=== PATIENT | female | born 1975 | race African-American/Black ===

== ENCOUNTER 2017-01-05 12:02 | Emergency (ER) | payer OTHER ==
[~2017-01-05] VITALS: Ht 162.6 cm; Wt 95.3 kg
--- NOTE | ~2017-01-05 | EKG ---
[address] [address] ELECTROCARDIOGRAM REPORT Name: GIRMA DUNHAMTYCHRISTIANO Chopra Room #: [facility]#: [id number] Admission: 01/05/17 Attend Phys: Discharge: 01/05/17 Date of : 73 Report #: [id number] THIS REPORT FOR: //name// [facility] ED Test Date: 2017-01-05 Test Time: 12:16:52 Pat Name: JONNY DUNHAM Department: Room: Gender: F Stallion Manager: Leslie PANG : 1975 Requested By: Noris Gleason Order Number: [id number] MD: Issa Welch Measurements Intervals [place] Rate: 102 P: 51 [place]: 165 QRS: 50 QRSD: 90 T: 43 QT: 347 QTc: 453 Interpretive Statements Sinus tachycardia Probable left atrial enlargement ST elev, probable normal early repol pattern Compared to ECG 12/08/2014 19:55:33 Early repolarization no longer present ST (T wave) deviation still present Electronically Signed On 01-05-2017 21:04:27 CDT by Issa Welch [email or web address] <ELECTRONICALLY SIGNED> By: Issa Welch MD 01/05/17 2104 1216 1216 Issa Welch MD /EPI
[~2017-01-05 12:02] MED LIST: AMBIEN PO; COLACE100 MG PO; CYMBALTA; FLEXERIL PO; FLONASE 0.05%50 MCG NASAL; GEODON80 MG PO; HYDROCHLOROTHIA25 M2 PO; IBUPROFEN 600600 M1; IBUPROFEN 800800 MG PO; LOPID600 MG PO; MUCUS RELIEF D1 EAC1 PO; NAPROSYN500 MG PO; NORCO 5-325 TA1 EACH PO; NORVASC5 MG PO; ORABASE11.9 GM MM; PRINIVIL20 MG PO; SENNA8.6 MG PO; VENTOLIN HFA 1818 GM INH; [UNRECOGNIZED DRUG - REMARK]
[2017-01-05] MEDS ORDERED: GLYBURIDE 2.52.5 MG PO (12:16)
[2017-01-05] MEDS ORDERED: PROPRANOLOL 1010 MG PO (12:16)
[2017-01-05] MEDS ORDERED: DOK100 MG PO (12:17)
[2017-01-05] MEDS ORDERED: PRAVACHOL20 MG PO (12:17)
[2017-01-05] MEDS ORDERED: NORCO 5-325 TA1 EACH PO (12:27)
[2017-01-05] MEDS ORDERED: VALIUM5 MG PO (12:27)
== END 2017-01-05 13:00 | disposition home or self-care (01) ==
LOC: ER 12:02
DX: M43.6 Torticollis (principal); M54.5 Low back pain; I10 Essential (primary) hypertension; E11.9 Type 2 diabetes mellitus without complications; F32.9 Major depressive disorder, single episode, unspecified; F17.210 Nicotine dependence, cigarettes, uncomplicated; F10.99 Alcohol use, unspecified with unspecified alcohol-induced disorder

== ENCOUNTER 2017-04-08 02:04 | Emergency (ER) | payer OTHER ==
[~2017-04-08] VITALS: Ht 167.6 cm; Wt 119.8 kg
[~2017-04-08 02:04] MED LIST changes: +DOK100 MG PO; +GLYBURIDE 2.52.5 MG PO; +PRAVACHOL20 MG PO; +PROPRANOLOL 1010 MG PO; +VALIUM5 MG PO
[2017-04-08 03:18] LABS: CREATININE 0.8 mg/dL (0.6-1.0); POTASSIUM 3.1 mmol/L (3.5-5.1)
[2017-04-08 03:19] LABS: ABSOLUTE NEUTROPHILS 5.2 thou/uL (1.4-8.2); BASOPHILS 0.5 % (0.0-2.0); EOSINOPHILS 2.2 % (0.0-3.0); HEMATOCRIT 39.7 % (37.0-47.0); HEMOGLOBIN 12.7 gm/dL (12.0-15.0); LYMPHOCYTES 31.3 % (24.0-44.0); MCH 28.7 pg (26.0-34.0); MCHC 32.1 g/dL (28.0-37.0); MCV 89.3 fL (80.0-100.0); MONOCYTES 3.6 % (1.0-8.0); PLATELET COUNT 300 thou/uL (150-400); POLYS 62.4 % (36.0-66.0); RBC 4.44 mil/uL (4.20-5.00); RDW 15.9 % (10.5-14.5); WBC 8.3 thou/uL (4.0-11.0)
[2017-04-08] MEDS ORDERED: GUAIFEN-CODEINE10 ML PO (04:06)
[2017-11-07] MEDS ORDERED: NEURONTIN 300300 M1 PO (04:53)
[2017-11-07] MEDS ORDERED: TRILEPTAL150 MG PO (04:53)
[2017-11-07] MEDS ORDERED: NAPROSYN500 MG PO (06:12)
== END 2017-04-08 04:38 | disposition home or self-care (01) ==
LOC: ER 02:04
PROVIDERS: Emergency Medicine
DX: F41.9 Anxiety disorder, unspecified (principal); J06.9 Acute upper respiratory infection, unspecified; F17.210 Nicotine dependence, cigarettes, uncomplicated; F32.9 Major depressive disorder, single episode, unspecified

== ENCOUNTER 2017-04-11 11:10 | Emergency (ER) | payer OTHER ==
[~2017-04-11] VITALS: Ht 172.7 cm; Wt 117.9 kg
[~2017-04-11 11:10] MED LIST changes: +GUAIFEN-CODEINE10 ML PO
[2017-04-11] MEDS ORDERED: TESSALON PERLE100 MG PO (13:16)
[2017-04-11] MEDS ORDERED: VENTOLIN HFA 1818 GM INH (13:16)
[2017-04-11] MEDS ORDERED: PREDNISONE 20 M20 MG PO (13:16)
[2017-11-07] MEDS ORDERED: TRILEPTAL150 MG PO (04:53)
[2017-11-07] MEDS ORDERED: NEURONTIN 300300 M1 PO (04:53)
[2017-11-07] MEDS ORDERED: NAPROSYN500 MG PO (06:12)
== END 2017-04-11 13:28 | disposition home or self-care (01) ==
LOC: ER 11:10
DX: J42 Unspecified chronic bronchitis (principal); J98.01 Acute bronchospasm; M79.1 Myalgia; I10 Essential (primary) hypertension; F32.9 Major depressive disorder, single episode, unspecified; F41.9 Anxiety disorder, unspecified; F17.210 Nicotine dependence, cigarettes, uncomplicated

== ENCOUNTER 2017-04-20 00:49 | Emergency (ER) | payer OTHER ==
[~2017-04-20] VITALS: Ht 167.6 cm; Wt 119.8 kg
--- NOTE | ~2017-04-20 | EKG ---
[place] [address] [facility] [place] [address] ELECTROCARDIOGRAM REPORT Name: JONNY DUNHAM Room #: [facility]#: [id number] Admission: 04/20/17 Attend Phys: Discharge: 04/20/17 Date of : 73 Report #: [id number] THIS REPORT FOR: //name// [facility] ED Test Date: 2017-04-20 Test Time: 02:45:16 Pat Name: JONNY DUNHAM Department: Room: Gender: F City Mail Carrier: Brandie LECHUGA : 1975 Requested By: Pablo Jaime Order Number: [id number] MD: Boogie Smyth Measurements Intervals [place] Rate: 100 P: 55 [place]: 152 QRS: 57 QRSD: 91 T: 55 QT: 366 QTc: 473 Interpretive Statements Sinus tachycardia Probable left atrial enlargement ST elev, probable normal early repol pattern Compared to ECG 01/05/2017 12:16:52 No significant changes Electronically Signed On 04-20-2017 7:35:58 LINE OUT WORKER by Boogie Smyth [email or web address] <ELECTRONICALLY SIGNED> By: Boogie Smyth MD, [facility] 04/20/17 0735 0245 0245 Boogie Smyth MD, [facility] /EPI
[~2017-04-20 00:49] MED LIST changes: +PREDNISONE 20 M20 MG PO; +TESSALON PERLE100 MG PO
[2017-04-20 02:51] LABS: HEMATOCRIT 42.5 % (37.0-47.0); HEMOGLOBIN 14.5 gm/dL (12.0-15.0); MCH 29.5 pg (26.0-34.0); MCV 86.6 fL (80.0-100.0); RBC 4.91 mil/uL (4.20-5.00); RDW 15.9 % (10.5-14.5); WBC 10.6 thou/uL (4.0-11.0)
[2017-04-20 03:00] LABS: ANION GAP 9 mmol/L (7-16); BUN 15 mg/dL (7-18); CALCIUM 9.6 mg/dL (8.5-10.1); CHLORIDE 97 mmol/L (98-107); CO2 30 mmol/L (21-32); CREATININE 0.8 mg/dL (0.6-1.0); GLUCOSE 182 mg/dL (74-106); POTASSIUM 3.7 mmol/L (3.5-5.1); SODIUM 136 mmol/L (136-145)
[2017-04-20 03:08] LABS: TROPONIN-I < 0.04 ng/mL (<0.06)
[2017-04-20] MEDS ORDERED: ZPAK PO (03:15)
[2017-04-20] MEDS ORDERED: NYAMYC15 GM TOP (03:15)
[2017-04-20] MEDS ORDERED: PROMETHAZINE/C118 ML PO (03:21)
[2017-11-07] MEDS ORDERED: NEURONTIN 300300 M1 PO (04:53)
[2017-11-07] MEDS ORDERED: TRILEPTAL150 MG PO (04:53)
[2017-11-07] MEDS ORDERED: NAPROSYN500 MG PO (06:12)
== END 2017-04-20 04:00 | disposition home or self-care (01) ==
LOC: ER 00:49
PROVIDERS: Emergency Medicine
DX: J06.9 Acute upper respiratory infection, unspecified (principal); I10 Essential (primary) hypertension; F32.9 Major depressive disorder, single episode, unspecified; F41.9 Anxiety disorder, unspecified; F17.210 Nicotine dependence, cigarettes, uncomplicated

== ENCOUNTER 2017-04-27 13:18 | Emergency (ER) | payer OTHER ==
[~2017-04-27] VITALS: Ht 167.6 cm; Wt 119.8 kg
--- NOTE | ~2017-04-27 | EKG ---
[place] [address] [facility] [place] [address] ELECTROCARDIOGRAM REPORT Name: JONNY DUNHAM Room #: [facility]#: [id number] Admission: 04/27/17 Attend Phys: Discharge: 04/27/17 Date of : 73 Report #: [id number] THIS REPORT FOR: //name// [facility] ED Test Date: 2017-04-27 Test Time: 14:53:23 Pat Name: JONNY DUNHAM Department: Room: Gender: F Jboss Architect: TONY : 1975 Requested By: Raffi Murillo Order Number: [id number] MD: Boogei Smyth Measurements Intervals [place] Rate: 94 P: 50 [place]: 169 QRS: 59 QRSD: 93 T: 34 QT: 363 QTc: 454 Interpretive Statements Sinus rhythm Probable left atrial enlargement Minimal ST elevation, anterior leads Compared to ECG 04/20/2017 02:45:16 Sinus tachycardia no longer present Electronically Signed On 04-27-2017 16:30:37 TOY ASSEMBLER WOOD by Boogie Smyth [email or web address] <ELECTRONICALLY SIGNED> By: Boogie Smyth MD, [facility] 04/27/17 1630 1453 1453 Boogie Smyth MD, [facility] /EPI
--- NOTE | ~2017-04-27 | EKG ---
[place] [address] [facility] [place] [address] ELECTROCARDIOGRAM REPORT Name: JONNY DUNHAM Room #: [facility]#: [id number] Admission: 04/27/17 Attend Phys: Discharge: 04/27/17 Date of : 73 Report #: [id number] THIS REPORT FOR: //name// [facility] ED Test Date: 2017-04-27 Test Time: 13:47:20 Pat Name: JONNY DUNHAM Department: Room: Gender: F Customer Relationship Specialist: TONY : 1975 Requested By: Pablo Jaime Order Number: [id number] MD: Boogie Smyth Measurements Intervals [place] Rate: 96 P: 37 [place]: 158 QRS: 46 QRSD: 91 T: 32 QT: 356 QTc: 450 Interpretive Statements Sinus rhythm ST elev, probable normal early repol pattern Compared to ECG 04/20/2017 02:45:16 Sinus tachycardia no longer present Electronically Signed On 04-27-2017 16:28:10 WHISKEY REGAUGER by Boogie Smyth [email or web address] <ELECTRONICALLY SIGNED> By: Boogie Smyth MD, [facility] 04/27/17 1628 1347 1347 Boogie Smyth MD, [facility] /EPI
[~2017-04-27 13:18] MED LIST changes: +NYAMYC15 GM TOP; +PROMETHAZINE/C118 ML PO; +ZPAK PO
[2017-04-27 13:53] LABS: HEMATOCRIT 40.6 % (37.0-47.0); HEMOGLOBIN 13.4 gm/dL (12.0-15.0); MCH 29.1 pg (26.0-34.0); RBC 4.61 mil/uL (4.20-5.00); RDW 15.9 % (10.5-14.5); WBC 10.3 thou/uL (4.0-11.0)
[2017-04-27 14:03] LABS: ANION GAP 8 mmol/L (7-16); BUN 9 mg/dL (7-18); CALCIUM 9.7 mg/dL (8.5-10.1); CHLORIDE 102 mmol/L (98-107); CO2 30 mmol/L (21-32); CREATININE 0.7 mg/dL (0.6-1.0); GLUCOSE 131 mg/dL (74-106); POTASSIUM 4.1 mmol/L (3.5-5.1); SODIUM 140 mmol/L (136-145)
[2017-04-27 14:12] LABS: TROPONIN-I < 0.04 ng/mL (<0.06)
[2017-04-27] MEDS ORDERED: TESSALON PERLE100 MG PO (15:20)
[2017-04-27] MEDS ORDERED: PROMETHAZINE-D118 ML PO (15:45)
[2017-04-27] MEDS ORDERED: HYDROXYZINE HCL10 M2 PO (15:45)
[2017-11-07] MEDS ORDERED: NEURONTIN 300300 M1 PO (04:53)
[2017-11-07] MEDS ORDERED: TRILEPTAL150 MG PO (04:53)
[2017-11-07] MEDS ORDERED: NAPROSYN500 MG PO (06:12)
== END 2017-04-27 15:46 | disposition left against medical advice (07) ==
LOC: ER 13:18
PROVIDERS: Emergency Medicine
DX: R07.89 Other chest pain (principal); F41.9 Anxiety disorder, unspecified; F32.9 Major depressive disorder, single episode, unspecified; F17.210 Nicotine dependence, cigarettes, uncomplicated; Z53.21 Procedure and treatment not carried out due to patient leaving prior to being seen by health care provider

== ENCOUNTER 2017-05-11 14:14 | Emergency (ER) | payer OTHER ==
--- NOTE | ~2017-05-11 | EKG ---
[address] [address] ELECTROCARDIOGRAM REPORT Name: JONNY DUNHAM Room #: [facility]#: [id number] Admission: Attend Phys: Discharge: Date of : 73 Report #: [id number] THIS REPORT FOR: //name// [facility] ED Test Date: 2017-05-11 Test Time: 14:16:44 Pat Name: GIRMATYCHRISTIANO DUNHAM Department: Room: Gender: F Senior Cytogenetics Laboratory Director: TONY : 1975 Requested By: Cookie Santos Order Number: [id number] MD: Measurements Intervals [place] Rate: 96 P: 53 [place]: 164 QRS: 52 QRSD: 93 T: 42 QT: 361 QTc: 457 Interpretive Statements Sinus rhythm Probable left atrial enlargement ST elevation suggests acute pericarditis Compared to ECG 04/27/2017 14:53:23 No significant changes [email or web address] By: 15 141 Kate Love MD /EPI
[~2017-05-11 14:14] MED LIST changes: +HYDROXYZINE HCL10 M2 PO; +PROMETHAZINE-D118 ML PO
[2017-05-11 14:42] LABS: HEMATOCRIT 40.1 % (37.0-47.0); HEMOGLOBIN 13.4 gm/dL (12.0-15.0); MCH 29.3 pg (26.0-34.0); MCHC 33.5 g/dL (28.0-37.0); MCV 87.7 fL (80.0-100.0); RBC 4.57 mil/uL (4.20-5.00); RDW 16.1 % (10.5-14.5); WBC 9.1 thou/uL (4.0-11.0)
[2017-05-11 14:49] LABS: ANION GAP 9 mmol/L (7-16); BUN 7 mg/dL (7-18); CALCIUM 10.7 mg/dL (8.5-10.1); CHLORIDE 100 mmol/L (98-107); CO2 31 mmol/L (21-32); CREATININE 0.8 mg/dL (0.6-1.0); GLUCOSE 148 mg/dL (74-106); POTASSIUM 3.6 mmol/L (3.5-5.1); SODIUM 140 mmol/L (136-145)
[2017-05-11 14:57] LABS: TROPONIN-I < 0.04 ng/mL (<0.06)
[2017-05-11] MEDS ORDERED: ROBITUSSIN100 MG/53 PO (15:21)
[2017-11-07] MEDS ORDERED: NEURONTIN 300300 M1 PO (04:53)
[2017-11-07] MEDS ORDERED: TRILEPTAL150 MG PO (04:53)
[2017-11-07] MEDS ORDERED: NAPROSYN500 MG PO (06:12)
== END 2017-05-11 18:23 | disposition home or self-care (01) ==
LOC: ER 14:14
PROVIDERS: Physician Assistant
DX: J42 Unspecified chronic bronchitis (principal); R07.89 Other chest pain; F41.9 Anxiety disorder, unspecified; F32.9 Major depressive disorder, single episode, unspecified; F17.210 Nicotine dependence, cigarettes, uncomplicated

== ENCOUNTER 2017-05-14 01:47 | Emergency (ER) | payer OTHER ==
[~2017-05-14] VITALS: Ht 167.6 cm; Wt 120.2 kg
[~2017-05-14 01:47] MED LIST changes: +ROBITUSSIN100 MG/53 PO
[2017-05-14] MEDS ORDERED: TESSALON PERLE100 MG PO (02:26)
[2017-05-14] MEDS ORDERED: NORFLEX100 MG PO (02:26)
[2017-05-14] MEDS ORDERED: NAPROSYN500 MG PO (02:26)
[2017-11-07] MEDS ORDERED: TRILEPTAL150 MG PO (04:53)
[2017-11-07] MEDS ORDERED: NEURONTIN 300300 M1 PO (04:53)
[2017-11-07] MEDS ORDERED: NAPROSYN500 MG PO (06:12)
== END 2017-05-14 02:45 | disposition home or self-care (01) ==
LOC: ER 01:47
DX: J06.9 Acute upper respiratory infection, unspecified (principal); M43.6 Torticollis; R20.2 Paresthesia of skin; F17.210 Nicotine dependence, cigarettes, uncomplicated

== ENCOUNTER 2017-06-30 06:57 | Emergency (ER) | payer OTHER ==
[~2017-06-30] VITALS: Ht 167.6 cm; Wt 120.2 kg
[~2017-06-30 06:57] MED LIST changes: +NORFLEX100 MG PO
[2017-06-30 07:00] VITALS: BP 138/75
[2017-06-30] MEDS ORDERED: PREDNISONE 20 M20 MG PO (07:08)
[2017-06-30] MEDS ORDERED: PEPCID40 MG PO (07:08)
[2017-06-30] MEDS ORDERED: CLARITIN10 MG PO (07:08)
== END 2017-06-30 07:35 | disposition home or self-care (01) ==
LOC: ER 06:57
DX: T78.40XA Allergy, unspecified, initial encounter (principal); F41.9 Anxiety disorder, unspecified; F32.9 Major depressive disorder, single episode, unspecified; F17.210 Nicotine dependence, cigarettes, uncomplicated; X58.XXXA Exposure to other specified factors, initial encounter

== ENCOUNTER 2017-07-18 18:36 | Emergency (ER) | payer OTHER ==
[~2017-07-18] VITALS: Ht 167.6 cm; Wt 119.8 kg
--- NOTE | ~2017-07-18 | EKG ---
[address] [address] ELECTROCARDIOGRAM REPORT Name: GIRMA DUNHAMLISA Nav Room #: [facility]#: [id number] Admission: 07/18/17 Attend Phys: Discharge: 07/18/17 Date of : 73 Report #: [id number] THIS REPORT FOR: //name// [facility] ED Test Date: 2017-07-18 Test Time: 18:42:21 Pat Name: JONNY DUNHAM Department: Room: Gender: F Machine Dyer: DOUG : 1975 Requested By: Cookie Santos Order Number: [id number] MD: Issa Welch Measurements Intervals [place] Rate: 96 P: 45 [place]: 178 QRS: 57 QRSD: 98 T: 51 QT: 371 QTc: 469 Interpretive Statements Sinus rhythm Probable left atrial enlargement Compared to ECG 05/11/2017 14:16:44 No significant changes Electronically Signed On 07-19-2017 8:08:49 CDT by Issa Welch [email or web address] <ELECTRONICALLY SIGNED> By: Issa Welch MD 07/19/17 0808 D: [id number] Issa Welch MD /[place]
[~2017-07-18 18:36] MED LIST changes: +CLARITIN10 MG PO; +PEPCID40 MG PO
[2017-07-18 19:02] LABS: HEMATOCRIT 43.2 % (37.0-47.0); HEMOGLOBIN 14.3 gm/dL (12.0-15.0); MCHC 33.1 g/dL (28.0-37.0); MCV 87.5 fL (80.0-100.0); RBC 4.93 mil/uL (4.20-5.00); RDW 15.1 % (10.5-14.5); WBC 10.5 thou/uL (4.0-11.0)
[2017-07-18 19:09] LABS: ANION GAP 5 mmol/L (7-16); BUN 8 mg/dL (7-18); CALCIUM 10.1 mg/dL (8.5-10.1); CHLORIDE 101 mmol/L (98-107); CO2 30 mmol/L (21-32); CREATININE 0.8 mg/dL (0.6-1.0); GLUCOSE 139 mg/dL (74-106); POTASSIUM 3.6 mmol/L (3.5-5.1); SODIUM 136 mmol/L (136-145)
[2017-07-18 19:17] LABS: ALBUMIN 3.6 g/dL (3.4-5.0); SGOT 51 U/L (15-37); SGPT 86 U/L (30-65); TOTAL BILIRUBIN 0.3 mg/dL (<0.1-1.0); TOTAL PROTEIN 7.7 g/dL (6.4-8.2); TROPONIN-I < 0.04 ng/mL (<0.06)
[2017-07-18 19:49] VITALS: BP 128/68
== END 2017-07-18 19:50 | disposition home or self-care (01) ==
LOC: ER 18:36
PROVIDERS: Physician Assistant
DX: R07.89 Other chest pain (principal); F17.210 Nicotine dependence, cigarettes, uncomplicated

== ENCOUNTER 2017-09-15 00:04 | Emergency (ER) | payer OTHER ==
[~2017-09-15] VITALS: Ht 167.6 cm; Wt 120.2 kg
[2017-09-15 00:09] VITALS: BP 136/84
[2017-09-15] MEDS ORDERED: XANAX 0.5 MG0.5 M1 PO (00:41)
[2017-09-15] MEDS ORDERED: CYCLOBENZAPRINE5 MG PO (00:49)
== END 2017-09-15 00:53 | disposition home or self-care (01) ==
LOC: ER 00:04
DX: F41.0 Panic disorder [episodic paroxysmal anxiety] (principal); R05 Cough; I10 Essential (primary) hypertension; F32.9 Major depressive disorder, single episode, unspecified; Z87.891 Personal history of nicotine dependence

== ENCOUNTER 2017-09-19 18:55 | Emergency (ER) | payer OTHER ==
[~2017-09-19] VITALS: Ht 167.6 cm; Wt 120.2 kg
[~2017-09-19 18:55] MED LIST changes: +CYCLOBENZAPRINE5 MG PO; +XANAX 0.5 MG0.5 M1 PO
[2017-09-19 18:56] VITALS: BP 132/83
[2017-09-19] MEDS ORDERED: VALIUM5 MG PO (19:17)
== END 2017-09-19 19:48 | disposition home or self-care (01) ==
LOC: ER 18:55
DX: F16.10 Hallucinogen abuse, uncomplicated (principal); F41.9 Anxiety disorder, unspecified; F32.9 Major depressive disorder, single episode, unspecified; F17.210 Nicotine dependence, cigarettes, uncomplicated

== ENCOUNTER 2017-10-24 14:42 | Emergency (ER) | payer OTHER ==
[~2017-10-24] VITALS: Ht 167.6 cm; Wt 115.7 kg
--- NOTE | ~2017-10-24 | EKG ---
[place] [address] [facility] [place] [address] ELECTROCARDIOGRAM REPORT Name: GIRMA DUNHAMTYCHRISTIANO Chopra Room #: [facility]#: [id number] Admission: 10/24/17 Attend Phys: Discharge: 10/24/17 Date of : 73 Report #: [id number] THIS REPORT FOR: //name// [facility] ED Test Date: 2017-10-24 Test Time: 14:44:01 Pat Name: JONNY DUNHAM Department: Room: Gender: F Taxation Agent: TONY : 1975 Requested By: Magdaleno Roman Order Number: [id number] MD: Boogie Smyth Measurements Intervals [place] Rate: 101 P: 68 [place]: 168 QRS: 61 QRSD: 94 T: 47 QT: 368 QTc: 477 Interpretive Statements Sinus tachycardia ST elev, probable normal early repol pattern Borderline prolonged QT interval Compared to ECG 07/18/2017 18:42:21 No significant change was found Electronically Signed On 10-25-2017 8:09:17 CDT by Boogie Smyth [email or web address] <ELECTRONICALLY SIGNED> By: Boogie Smyth MD, [facility] 10/25/17 0809 1444 1444 Boogie Smyth MD, [facility] /EPI
[2017-10-24 15:25] LABS: ABSOLUTE NEUTROPHILS 5.5 thou/uL (1.4-8.2); EOSINOPHILS 2.8 % (0.0-3.0); HEMATOCRIT 42.1 % (37.0-47.0); HEMOGLOBIN 14.1 gm/dL (12.0-15.0); LYMPHOCYTES 39.2 % (24.0-44.0); MCH 29.5 pg (26.0-34.0); MCHC 33.4 g/dL (28.0-37.0); MCV 88.2 fL (80.0-100.0); MONOCYTES 5.1 % (1.0-8.0); PLATELET COUNT 295 thou/uL (150-400); POLYS 51.9 % (36.0-66.0); RBC 4.77 mil/uL (4.20-5.00); RDW 15.6 % (10.5-14.5); WBC 10.6 thou/uL (4.0-11.0)
[2017-10-24 15:28] LABS: ANION GAP 8 mmol/L (7-16); BUN 7 mg/dL (7-18); CHLORIDE 101 mmol/L (98-107); CO2 27 mmol/L (21-32); CREATININE 0.8 mg/dL (0.6-1.0); GLUCOSE 109 mg/dL (74-106); POTASSIUM 3.8 mmol/L (3.5-5.1); SODIUM 136 mmol/L (136-145)
[2017-10-24 15:37] LABS: TROPONIN-I <0.06 ng/mL (<0.06)
[2017-10-24 15:53] LABS: URINE BILIRUBIN NEGATIVE (Negative); URINE BLOOD NEGATIVE (Negative); URINE CLARITY CLEAR; URINE COLOR YELLOW; URINE GLUCOSE-RANDOM* NEGATIVE (Negative); URINE KETONES NEGATIVE (Negative); URINE LEUKOCYTES-REFLEX NEGATIVE (Negative); URINE NITRITE-REFLEX NEGATIVE (Negative); URINE PROTEIN (DIPSTICK) NEGATIVE (Negative); URINE UROBILINOGEN 0.2 E.U./dl (0.2-1.0)
[2017-10-24 16:01] LABS: AMP/METHAMP Negative (Negative); BARBITURATES Negative (Negative); BENZODIAZEPINES POSITIVE (Negative); COCAINE Negative (Negative); METHADONE Negative (Negative); OPIATES Negative (Negative); PCP POSITIVE (Negative)
[2017-10-24 16:19] VITALS: BP 134/91
== END 2017-10-24 16:28 | disposition home or self-care (01) ==
LOC: ER 14:42
PROVIDERS: Emergency Medicine
DX: F16.10 Hallucinogen abuse, uncomplicated (principal); F17.210 Nicotine dependence, cigarettes, uncomplicated; F32.9 Major depressive disorder, single episode, unspecified; F41.9 Anxiety disorder, unspecified

== ENCOUNTER 2018-02-04 01:06 | Emergency (ER) | payer OTHER ==
[~2018-02-04] VITALS: Ht 167.6 cm; Wt 117.9 kg
--- NOTE | ~2018-02-04 | EKG ---
[address] [address] ELECTROCARDIOGRAM REPORT Name: JONNY DUNHAM Room #: [facility]#: [id number] Admission: 02/04/18 Attend Phys: Discharge: 02/04/18 Date of : 73 Report #: [id number] THIS REPORT FOR: //name// [facility] ED Test Date: 2018-02-04 Test Time: 01:45:16 Pat Name: JONNY DUNHAM Department: Room: Gender: F Veterinary Technology Instructor: shasta : 1975 Requested By: Gonzalo Abdi Order Number: [id number] MD: Boogie Smyth Measurements Intervals [place] Rate: 109 P: 65 [place]: 163 QRS: 54 QRSD: 95 T: 32 QT: 354 QTc: 477 Interpretive Statements Sinus tachycardia Poor R wave progression Compared to ECG 12/01/2017 19:16:01 No significant change was found Electronically Signed On 02-04-2018 8:10:23 ASSOCIATE SALES MANAGER by Boogie Smyth [email or web address] <ELECTRONICALLY SIGNED> By: Boogie Smyth MD, [facility] 02/04/18 0810 0145 014 Boogie Smyth MD, [facility] /EPI
[~2018-02-04 01:06] MED LIST changes: +NEURONTIN 300300 M1 PO; +TRILEPTAL150 MG PO
[2018-02-04 02:07] LABS: AMP/METHAMP Negative (Negative); BARBITURATES Negative (Negative); BENZODIAZEPINES Negative (Negative); COCAINE Negative (Negative); METHADONE Negative (Negative); OPIATES Negative (Negative); PCP POSITIVE (Negative)
[2018-02-04] MEDS ORDERED: TESSALON PERLE100 MG PO (02:26)
== END 2018-02-04 02:30 | disposition home or self-care (01) ==
LOC: ER 01:06
PROVIDERS: Emergency Medicine
DX: F41.9 Anxiety disorder, unspecified (principal); R06.02 Shortness of breath; F17.210 Nicotine dependence, cigarettes, uncomplicated; I10 Essential (primary) hypertension; E11.9 Type 2 diabetes mellitus without complications; F32.9 Major depressive disorder, single episode, unspecified

== ENCOUNTER → 2018-12-19 | Outpatient (CLI) | payer OTHER | LOC: ULTRA 02:20 → RAD 02:20 → ULTRA 10:21 | DX: N63.10 Unspecified lump in the right breast, unspecified quadrant (principal); R92.2 Inconclusive mammogram ==

== ENCOUNTER 2020-10-16 12:14 | Emergency (ER) | payer OTHER ==
[~2020-10-16] VITALS: Ht 167.6 cm; Wt 113.4 kg
[2020-10-16 12:23] VITALS: BP 120/79
[2020-10-16] MEDS ORDERED: CORICIDIN HBP1 EAC5 PO (12:34)
[2020-10-16] MEDS ORDERED: IBUPROFEN 600600 M1 PO (12:34)
== END 2020-10-16 13:09 | disposition home or self-care (01) ==
LOC: ER 12:14
DX: J06.9 Acute upper respiratory infection, unspecified (principal); R05 Cough; I10 Essential (primary) hypertension; E11.9 Type 2 diabetes mellitus without complications; F32.9 Major depressive disorder, single episode, unspecified; F41.9 Anxiety disorder, unspecified; F17.210 Nicotine dependence, cigarettes, uncomplicated; Z79.84 Long term (current) use of oral hypoglycemic drugs; Z79.810 Long term (current) use of selective estrogen receptor modulators (SERMs); Z79.899 Other long term (current) drug therapy